=== PATIENT | female | born 1975 | race Caucasian/White ===

== ENCOUNTER → 2017-11-02 | Outpatient (CLI) | payer BC ==
[~2017-11-02] MED LIST: DIPHENHYDRAM50 MG/M2 PO; UNICOMPLEX M TA1 TA1 PO
== END ==
LOC: M.RAD 07:45
DX: Z12.31 Encounter for screening mammogram for malignant neoplasm of breast (principal)

== ENCOUNTER → 2018-11-22 | Outpatient (CLI) | payer BC | LOC: M.RAD 07:15 | DX: Z12.31 Encounter for screening mammogram for malignant neoplasm of breast (principal) ==

== ENCOUNTER → 2019-02-03 | Outpatient (CLI) | payer BC ==
--- NOTE | 2019-02-03 13:12 | 2DMMODE ---
[place] [address] 2 D/M-MODE ECHOCARDIOGRAM Name: JAIME NELSON Room: [facility]#: [id number] Admission: 02/03/19 Attend Phys: Scott Velásquez Discharge: Date of : 71 Date of Service: 02/03/19 1312 Report #: [id number] THIS REPORT FOR: //name// APPROVED REPORT Study performed: 02/03/2019 08:35:52 EXAM: Comprehensive 2D, Doppler, and color-flow Echocardiogram Patient Location: Out-Patient BSA: 1.72 HR: 78 bpm BP: 120/70 mmHg Other Information Study Quality: Good Indications Murmur 2D Dimensions IVSd: 9.21 (7-11mm) LVOT Diam: 20.26 (18-24mm) LVDd: 41.45 mm PWd: 8.72 (7-11mm) Ascending Ao: 28.91 (22-36mm) LVDs: 24.64 (25-40mm) Aortic Root: 23.88 mm Volumes Left Atrial Volume (Systole) LA ESV Index: 16.30 mL/m2 Aortic Valve AoV Peak Davi.: 1.11 m/s AO Peak Gr.: 4.95 mmHg LVOT Max P.15 mmHg AO Mean Gr.: 2.62 mmHg LVOT Mean P.10 mmHg LVOT Max V: 1.13 m/s AO V2 VTI: 23.78 cm LVOT Mean V: 0.64 m/s ANGEL (VTI): 2.94 cm2 LVOT V1 VTI: 21.70 cm Mitral Valve E/A Ratio: 1.19 MV Decel. Time: 196.83 ms MV E Max Davi.: 0.66 m/s MV PHT: 57.08 ms MVA (PHT): 3.85 cm2 [place] [address] 2 D/M-MODE ECHOCARDIOGRAM Name: JAIME NELSON Room: [facility]#: [id number] Admission: 02/03/19 Attend Phys: Scott Velásquez Discharge: Date of : 71 Date of Service: 02/03/19 1312 Report #: [id number] TDI E/Lateral E': 4.40 E/Medial E': 5.50 Medial E' Davi.: 0.12 m/s Lateral E' Davi.: 0.15 m/s Pulmonary Valve PV Peak Davi.: 0.76 m/s PV Peak Gr.: 2.33 mmHg Tricuspid Valve RAP Estimate: 5.00 mmHg TR Peak Gr.: 22.95 mmHg RVSP: 27.95 mmHg PA Pressure: 27.95 mmHg Left Ventricle The left ventricle is normal size. There is normal LV segmental wall motion. There is normal left ventricular wall thickness. Left ventricular systolic function is normal. The left ventricular ejection fraction is within the normal range. LVEF is 55-60%. The left ventricular diastolic function is normal. Right Ventricle The right ventricle is normal size. The right ventricular systolic function is normal. Atria The left atrium size is normal. The right atrium size is normal. Aortic Valve The aortic valve is normal in structure. No aortic regurgitation is present. There is no aortic valvular stenosis. Mitral Valve The mitral valve is normal in structure. There is no mitral valve regurgitation noted. No evidence of mitral valve stenosis. Tricuspid Valve The tricuspid valve is normal in structure. Trace tricuspid regurgitation. Pulmonic Valve Pulmonic valve is not well visualized. There is no pulmonic valvular regurgitation. [place] [address] 2 D/M-MODE ECHOCARDIOGRAM Name: JAIME NELSON Room: [facility]#: [id number] Admission: 02/03/19 Attend Phys: Scott Velásquez Discharge: Date of : 71 Date of Service: 02/03/19 1312 Report #: [id number] The aortic root is normal in size. IVC is normal in size and collapses >50% with inspiration. Pericardium There is no pericardial effusion. <Conclusion> Left ventricular systolic function is normal. The left ventricular ejection fraction is within the normal range. <ELECTRONICALLY SIGNED> By: Stefano Flores MD, FACC 02/03/191311 11 11 Stefano Flores MD, FAC /INF
== END ==
LOC: M.CRD 08:00
DX: M46.82 Other specified inflammatory spondylopathies, cervical region (principal); M25.78 Osteophyte, vertebrae; R01.1 Cardiac murmur, unspecified; M54.2 Cervicalgia; R42 Dizziness and giddiness

== ENCOUNTER → 2019-03-03 | Outpatient (CLI) | payer OTHER ==
[~2019-03-03] MED LIST changes: +IBUPROFEN200 M1 PO; +MELOXICAM15 MG PO
== END ==
LOC: M.PC 11:00
DX: M47.812 Spondylosis without myelopathy or radiculopathy, cervical region (principal); M50.31 Other cervical disc degeneration, high cervical region